=== PATIENT | female | born 1965 | race Caucasian/White ===

== ENCOUNTER 2020-11-17 13:45 | Emergency (ER) | payer OTHER, SELFPAY ==
--- NOTE | ~2020-11-17 | XR_ITS ---
EXAMINATION: XR chest 2V DATE: 11/17/2020 14:24 INDICATION: Cough. TECHNIQUE: Frontal and lateral views of the chest were obtained. COMPARISON: Chest 2 views 09/21/2015 FINDINGS: The chest demonstrates clear lungs without pneumonia, pleural effusion, or pneumothorax. Th e heart size is normal. IMPRESSION: 1. No acute cardiopulmonary disease. Reviewed, dictated and finalized at location A. [employer]
--- NOTE | 2020-11-17 14:06 | ED.URI ---
HPI - URI/Sore Throat General Chief Complaint: Upper Respiratory Infection Stated Complaint: Sob Time Seen by Provider: 11/17/20 14:31 Source: patient and RN notes reviewed Mode of arrival: ambulatory Limitations: no limitations History of Present Illness HPI Narrative: 55-year-old female presents with concern for cough for 2 weeks. Reports she had a negative Covid test, has had 2 virtual visits with her doctor, had a Z-Torito, had 1 round of steroids, and is currently finishing a second round of steroids. She continues to have shortness of breath with exertion. She denies chest pain, fever, malaise, body aches. Denies shortness of breath at rest. Denies chest pain MD elicited complaint: cough Related Data Home Medications Medication Instructions Recorded Confirmed omeprazole 11/17/20 Allergies Allergy/AdvReac Type Severity Reaction Status Date / Time No Known Allergies Allergy Verified 11/17/20 13:59 Review of Systems Review of Systems: Narrative: CONSTITUTIONAL: Denies malaise, chills, sweats, or fever. EYES: Denies visual changes, redness, or discharge. ENT: Denies rhinorrhea, congestion, sinus pain, otalgia and sore throat. CARDIOVASCULAR: Denies chest pain, palpitations, or edema. RESPIRATORY: Reports cough, exertional dyspnea. GASTROINTESTINAL: Denies abdominal pain, nausea, vomiting, diarrhea SKIN: Denies rash or itching. MUSCULOSKELETAL: Denies myalgia. NEUROLOGIC: Denies headache. All systems reviewed & are unremarkable except as noted in HPI and below PMFSH Past Medical History Medical History (Updated 11/17/20 @ 14:40 by Olga Garces NP) Anxiety Bronchitis Depression Surgical History Surgical History H/O foot surgery H/O tubal ligation History of removal of ovarian cyst Family History Family History Father Hypertension Lung cancer Mother Diabetes mellitus Heart disease COPD (chronic obstructive pulmonary disease) Sibling Breast cancer Unknown Diabetes mellitus Heart disease Hypertension Cerebrovascular accident Tuberculosis Social History Social History Smoking status: Current every day smoker Tobacco type: cigarettes Alcohol intake: current Gender identity (if verbalized by the patient): Female Comments At time of signature, agree with nursing past medical, surgical, social and family history. There is no relevant family history pertinent to the presenting complaint Exam Narrative: Exam Narrative: GENERAL: Well-appearing, well-nourished, and in no acute distress. HEAD: Normocephalic EYES: PERRLA, conjunctivae clear ENT: Nares clear. Mucous membranes moist. NECK: Supple. No lymphadenopathy CHEST: Right upper coarseness, otherwise clear to auscultation, breath sounds equal. No wheezing, rhonchi, rales, or stridor. No respiratory distress, speaks in full sentences. HEART: Regular rate and rhythm. No murmur heard. SKIN: Warm, dry, no rash. NEURO: Alert and oriented x3. PSYCH: Normal mood and affect Course Course Emergency Course: Patient is aware of diagnosis, understands and agrees to treatment plan. Anticipatory guidance given. Patient agrees to follow-up as directed and is aware of reasons to seek care at the emergency department. Portions of this record may have been created with voice recognition software Vital Signs Vital signs: Vital Signs Temperature 97.0 F L 11/17/20 14:12 Pulse Rate 100 11/17/20 14:12 Respiratory Rate 22 H 11/17/20 14:12 Blood Pressure 145/86 H 11/17/20 14:12 Pulse Oximetry 98 11/17/20 14:12 Temperature 97.0 F L 11/17/20 14:12 Pulse Rate 100 11/17/20 14:12 Respiratory Rate 22 H 11/17/20 14:12 Blood Pressure 145/86 H 11/17/20 14:12 Pulse Oximetry 98 11/17/20 14:12 Reviewed. MDM - URI/Sore Throat MDM Narrative Medical decision making
[2020-11-17 14:12] VITALS: BP 145/86; PULSE 100; RESP 22; TEMP 36.1; O2SAT 98
== END 2020-11-17 14:43 | disposition home or self-care (01) ==
PROVIDERS: Emergency Provider Nurse Practitioner; PCP Registered Nurse
DX: R05 Cough (principal); R09.89 Other specified symptoms and signs involving the circulatory and respiratory systems; F17.210 Nicotine dependence, cigarettes, uncomplicated
CPT/HCPCS: 71046; 99213; G0463